=== PATIENT | male | born 1955 | race Caucasian/White ===

== ENCOUNTER → 2019-03-09 08:02 | Outpatient (CLI) | payer OTHER, SELFPAY ==
[2019-03-09 08:54] LABS: Anion Gap 2 (5-15); BUN 12 mg/dL (7-18); BUN/Creat Ratio 10.7 RATIO (10-20); Calcium,Total 8.9 mg/dL (8.5-10.1); Chloride 105 mmol/L (98-107); Cholesterol 215 mg/dL (200); Creatinine, Serum 1.12 mg/dL (0.70-1.30); EST Glomerular Filtration Rate 70 mL/min (>60); Est Glom Filt Rate - Afr Amer 85 mL/min (>60); Glucose 92 mg/dL (74-106); High Density Lipoprotein 38 mg/dL; Sodium Level 140 mmol/L (136-145); Triglycerides 251 mg/dL; Very Low Density Lipoprotein 50 mg/dL (5-40)
== END ==
LOC: LAB.FUTURE 08:05 → LAB 08:11
PROVIDERS: Family Provider Family Medicine; PCP Family Medicine; Referring Provider Family Medicine; Visit Provider Family Medicine
DX: I10 Essential (primary) hypertension (principal); Z79.899 Other long term (current) drug therapy; E78.5 Hyperlipidemia, unspecified
CPT/HCPCS: 36415; 80048; 80061; 83036

== ENCOUNTER 2019-11-22 21:28 | Emergency (ER) | payer MEDICARE, OTHER, SELFPAY ==
[2019-11-22 21:29] VITALS: BP 133/86; PULSE 77; RESP 18; TEMP 35.9; O2SAT 97; BMI 30.1
--- NOTE | 2019-11-22 21:42 | CT_ITS ---
STUDY: CT ABDOMEN AND PELVIS WITHOUT CONTRAST REASON FOR EXAM: Male, 64 years old. LEFT FLANK PAIN INTERMITTENTLY SINCE THIS AM. NO N/V. H/O KS HE WAS ABLE TO PASS ON HIS OWN. RADIATION DOSAGE (If Supplied By Facility): CTDIvol = ( 11.99 ) mGy, DLP = ( 641.18 ) mGycm TECHNIQUE: Transaxial images were obtained from the dome of the diaphragm to the symphysis pubis without oral contrast, and without intravenous contrast. Sagittal and coronal images were reconstructed. Individualized dose optimization techniques were used for this CT. COMPARISON: None. FINDINGS: The visualized lung bases are unremarkable. The visualized portions of the heart are within normal limits. Normal liver. Normal gallbladder and extrahepatic biliary system. Normal spleen. Normal pancreas. Normal bilateral adrenal glands. Normal right kidney. There are several left renal cysts, the largest measuring 2.2 cm. Normal visualized stomach. Normal small intestine. There is diffuse colonic diverticulosis with no evidence of associated diverticulitis. The appendix is visualized and appears normal. There are calcified plaques of the abdominal aorta. Normal inferior vena cava. Normal retroperitoneum. Normal urinary bladder. There are dense prostatic calcifications. Normal abdominal wall. There is endplate spondylosis of the visualized thoracic spine. CT/Abdomen/Pelvis without Cont IMPRESSION: 1. Left renal cysts, the largest measuring 2.2 cm. There is no evidence of nephro or ureterolithiasis or hydronephrosis, or hydroureter. 2. Diffuse colonic diverticulosis with no evidence of associated diverticulitis. 3. Dense prostatic calcifications are seen. Electronically Signed: Colby Rowe MD at 22:43 EDT , Service support ,
[2019-11-22 21:59] LABS: Mucous, Urine 0 SEEN /hpf (<or=2+); Squamous Epithelial Cells - UA 0 SEEN /hpf (0-5)
[2019-11-22 22:01] LABS: Color, Urine Yellow (Yellow); Glucose, Dipstick Normal (Normal); Ketone-Dipstick Negative (Negative); Leukocyte Esterase-Dipstick 500 /ul (Negative); Nitrite-Dipstick Negative (Negative); Occult Blood-Urine 50 /ul (Negative); Protein-Dipstick Negative (Negative); Specific Gravity, Urine 1.015 (1.002-1.030); Urine Bilirubin Dipstick Negative (Negative); Urine Clarity Clear (Clear); Urine Urobilinogen Normal (Normal); Urine pH 6.5 (5.0 - 8.0)
--- NOTE | 2019-11-22 22:03 | ED.VIS.GEN ---
History of Present Illness Chief Complaint: Flank Pain Informant: Patient Onset: Today Context: Gradual Onset Timing: Intermittent Current Severity: Moderate Maximum Severity: Moderate Narrative: The patient is a 64-year-old male who is otherwise been in good health the presents to the emergency department with left flank and left lower quadrant pain. The patient states that he was painting today. He states that he was getting these twinges of pain. He states that they would only last a few minutes and then go away. He denies nausea or vomiting. Patient states he has had kidney stones before and this does feel similar. He denies any fever or chills. He is been moving his bowels without issue. He denies any rash. The pain does not radiate. Prior similar symptoms: Yes Recent Illness/Hospitalization: No Past Medical History - Allergies and Home Meds Allergies/Adverse Reactions: Allergies sulfamethoxazole [From Bactrim] Allergy (Verified 11/22/19 21:31) Swelling trimethoprim [From Bactrim] Allergy (Verified 11/22/19 21:31) Swelling Primary Care Physician: Maxime Her III, MD [Primary Care Provider] - Prior records reviewed: Yes Past Medical History: None Surgical History: noncontributory Smoking Status: Never smoker Review of Systems General: Denies: Chills, Fever, Sweats Eyes: Denies: Visual changes - bilaterally, Diplopia ENT: Denies: Rhinorrhea, Sore throat Cardiovascular: Denies: Chest pain, Palpitations Respiratory: Denies: Dyspnea, Cough, Dyspnea on exertion Gastrointestinal: Reports: Abdominal pain. Denies: Nausea, Vomiting, Diarrhea, Melena, Hematochezia Genitourinary: Denies: Dysuria, Hematuria, Frequency Musculoskeletal: Denies: Back pain, Extremity Pain Skin: Denies: Rash, Wounds Neurological: Denies: Headache, Weakness, Numbness Physical Exam Vital Signs/Narrative: Vital Signs Temp Pulse Resp BP Pulse Ox 11/22/19 21:29 96.7 F L 77 18 133/86 H 97 Inital Vital Signs reviewed: Yes General: Well nourished, Well developed, No Acute Distress Head: Normocephalic, Atraumatic Eyes: Perrl, EOMI ENT: Moist mucous membranes, No rhinorrhea Neck: Supple, Nontender Cardiovascular: Regular rate, Regular rhythm, No murmurs Respiratory: No distress, CTA bilaterally, Chest nontender Abdomen: Soft, Nontender, Nondistended, Normal bowel sounds Back: Nontender, Normal Inspection Extremities: Nontender, No edema Skin: Normal color, No rash Neurological: Alert, Oriented x3, Cranial nerves II-XII grossly intact, Normal Strength, Normal Sensation Psychological: Normal affect, Normal Mood Diagnostic/Tx/Re-eval Clinical Impression(s) from Imaging Studies Abdomen/Pelvis CT 11/22/19 21:42 IMPRESSION: 1. Left renal cysts, the largest measuring 2.2 cm. There is no evidence of nephro or ureterolithiasis or hydronephrosis, or hydroureter. 2. Diffuse colonic diverticulosis with no evidence of associated diverticulitis. 3. Dense prostatic calcifications are seen. Electronically Signed: Colby Rowe MD at 22:43 EDT , Service support , Abnormal Lab Results 11/22/19 21:40 Urine Color Yellow Urine Clarity Clear Urine pH 6.5 Ur Specific [place] 1.015 Urine Protein Negative Urine Glucose (UA) Normal Urine Ketones Negative Urine Occult Blood 50 H Urine Nitrite Negative Urine Bilirubin Negative Urine Urobilinogen Normal Ur Leukocyte Esterase 500 H Urine RBC 0-5 SEEN Urine WBC 0-5 SEEN Ur Squamous Epith Cells 0 SEEN Urine Bacteria RARE Urine Mucus 0 SEEN - Medical Decision Making The patient presents with intermittent twinges of pain in his left lower quadrant. I really cannot re-create the pain on exam. He states he is a kidney stone and this feels somewhat similar. He is not had fever. He denies any other infectious symptoms. Urine was obtained which shows no evidence of infection. There is scant blood. Patient underwent CT imaging. There is diverticulosis without diverticulitis. There is no evidence of obstructive uropathy. He declined any analgesics. At this point, not sure if this is muscular or recently passed stone. I do for the patient is safe for outpatient follow-up. He will be discharged home. Impression 1. Left flank pain ED Disposition - Plan for ED Patient: Instructions: ED Flank Pain Uncertain Cause Referrals: Maxime Her III, MD [Primary Care Provider] -
[2019-11-22 22:34] LABS: White Blood Cells 0-5 SEEN /hpf (0-5)
[2019-11-22 22:35] LABS: Bacteria RARE /hpf (None Seen); Red Blood Cells-Urine 0-5 SEEN /hpf (0-5)
== END 2019-11-22 23:10 | disposition home or self-care (01) ==
LOC: ED 22:37
PROVIDERS: Emergency Provider Emergency Medicine; PCP Family Medicine
DX: R10.32 Left lower quadrant pain (principal); R10.9 Unspecified abdominal pain; K57.90 Diverticulosis of intestine, part unspecified, without perforation or abscess without bleeding; Z87.442 Personal history of urinary calculi
CPT/HCPCS: 74176; 81001; 99282

== ENCOUNTER 2020-07-12 09:25 | Outpatient (RCR) | payer MEDICARE, OTHER, SELFPAY | END 2020-08-16 23:59 | LOC: IMMUN 09:25 | PROVIDERS: PCP Family Medicine; Referring Provider Family Medicine; Visit Provider Family Medicine | DX: Z23 Encounter for immunization (principal) | CPT/HCPCS: 0001A; 0002A; 91300 ==

== ENCOUNTER → 2024-10-20 | Outpatient (CLI) | payer MEDICARE, OTHER, SELFPAY ==
--- NOTE | 2024-10-20 08:55 | CDU_ITS ---
Reason For Study Reason For Study: Amaurosis Fugax Rt. Velocities/BP Lt. Velocities/BP Prox CCA 91.9/23.7 cm/sec. Prox CCA 99.6/31.4 cm/sec. Mid CCA 89.7/19.3 cm/sec. Mid CCA 79.8/27.0 cm/sec. Dist CCA 85.3/24.8 cm/sec. Dist CCA 87.5/30.3 cm/sec. Prox ICA 72.1/16.0 cm/sec. Prox ICA 83.1/24.8 cm/sec. Mid ICA 67.7/27.0 cm/sec. Mid ICA 86.4/24.8 cm/sec. Dist ICA 89.7/31.4 cm/sec. Dist ICA 65.8/28.9 cm/sec. Rt. ICA/CCA = 1.0. Lt. ICA/CCA = 1.1. Prox ECA 112.5/15.7 cm/sec. Prox ECA 102.7/16.7 cm/sec. Rt. Vert. 44.1/18.0 cm/sec. Lt. Vert. 33.1/10.4 cm/sec. Right Extracranial There is homogeneous, smooth atherosclerotic plaque noted in the right common carotid artery. There is homogeneous, smooth atherosclerotic plaque noted in the right internal carotid artery. There is intimal thickening but no significant atherosclerotic plaque noted in the right external carotid artery. Antegrade flow is noted in the right vertebral artery. Left Extracranial There is heterogeneous, irregular atherosclerotic plaque noted in the left common carotid artery. There is heterogeneous, irregular atherosclerotic plaque noted in the left internal carotid artery. There is intimal thickening but no significant atherosclerotic plaque noted in the left external carotid artery. Antegrade flow is noted in the left vertebral artery. Procedure Carotid Duplex 18222. This is a Carotid Duplex examination using B-mode, color flow and specral Doppler. The exam was diagnostic. Exam performed in department. VL/Carotid Duplex Ultrasound Interpretation Summary Mild (<50%) stenosis right extracranial internal carotid. Mild (<50%) stenosis left extracranial internal carotid. Flow within the vertebral arteries is antegrade bilaterally. Ordering Physician: Azam Peres Referring Physician: Sybil Santos Performed By: Teodoro Lambert RVT
== END | disposition home or self-care (01) ==
LOC: CVS 08:52
PROVIDERS: PCP Clinical Nurse Specialist Adult Health; Referring Provider Ophthalmology; Visit Provider Ophthalmology
DX: G45.3 Amaurosis fugax (principal)
CPT/HCPCS: 93880